=== PATIENT | female | born 1940 | race Caucasian/White ===

== ENCOUNTER → 2016-08-03 | Outpatient (CLI) | payer MEDICARE, OTHER ==
[~2016-08-03] MED LIST: FLON1SPR; LISI40TAB PO; MELA5TAB21 PO; SIMV10TA2 PO; VERA300C PO; VITA100037 PO
[2016-08-03 12:22] LABS: INR 1.08
--- NOTE | 2016-08-03 16:47 | REP ---
CHEST, TWO VIEWS: REASON: Preop assessment. COMPARISON: 09/03/2010. FINDINGS: The superior mediastinal structures are midline. The cardiac silhouette is unremarkable in size, shape, and position. The diaphragmatic surfaces of the lungs are regular, and the costophrenic angles are clear. The pulmonary claros are clear. The imaged osseous structures are intact. No change from the prior exam other than technique. IMPRESSION: There is no acute cardiopulmonary disease. Signed by Fredrick Esposito DO 08/03/2016 05:12 P
--- NOTE | 2016-08-03 20:18 | ECGEPIP ---
Stationary ECG Study [facility] Test Date: 2016-08-03 Pat Name: REMA DUEÑAS Department: Room: - Gender: F Teaching Dietitian: LYNN : 1940 Requested By: Travon Wheat Order Number: [id number] Reading MD: Kylee Georges Measurements Intervals [place] Rate: 67 P: 57 AR: 185 QRS: 41 QRSD: 86 T: 53 QT: 389 QTc: 411 Interpretive Statements SINUS RHYTHM NO PRIOR Electronically Signed On 08-03-2016 20:18:44 EDT by Kylee Georges
== END ==
LOC: M ADMPAT 10:29
PROVIDERS: ATTEND Orthopaedic Surgery
DX: Z01.818 Encounter for other preprocedural examination (principal); M17.12 Unilateral primary osteoarthritis, left knee; Z79.899 Other long term (current) drug therapy

== ENCOUNTER 2016-08-17 05:44 | Inpatient (IN) | payer MEDICARE, OTHER ==
[2016-08-03 11:41] VITALS: BP 148/78
--- NOTE | 2016-08-13 13:24 | HPE ---
DATE OF ADMISSION: 08/17/2016 ATTENDING PHYSICIAN: Travon Ruiz MD CHIEF COMPLAINT: Left knee pain and stiffness. HISTORY: This is a pleasant 76-year-old female patient with progressively worsening left knee pain and stiffness. She has failed to improve with conservative management to include injections, viscosupplementation, activity modification and rest. She continues have pain with normal day-to-day activities. She is being admitted for elective knee replacement on the left side. She has been consented for a left total knee arthroplasty by Dr. Ruiz. X-rays of the knee are notable for end-stage degenerative changes of the left knee. ALLERGIES: 1. She has no true allergies. She does have intolerance eggs that cause nausea and vomiting. 2. DARVOCET, which causes confusion. 3. HYDROCHLOROTHIAZIDE causes her gout to flare. 4. PENICILLIN that her gastrointestinal (GI) issues. CURRENT MEDICATIONS: Include: - calcium with vitamin D one tablet once per day - Flonase 50 mcg two sprays each nostril once per day - lisinopril 40 mg one tablet once per day - Zocor 10 mg one tablet in the p.m. - verapamil extended release 300 mg one tablet once per day - vitamin D 1000 units one tablet once per day MEDICAL HISTORY: Includes: Symptomatic osteoarthritis of the left knee. Allergic rhinitis. Elevated lipids. Hypertension. Osteopenia. Prediabetic. SURGICAL HISTORY: Includes: Bilateral cataract surgery. Tonsils removed. Total hysterectomy. FAMILY HISTORY: Noncontributory. SOCIAL HISTORY: She does not smoke. She does not use alcohol. She is currently retired. REVIEW OF SYSTEMS: Denies fever or chills. Denies chest pain, shortness breath or cough. Denies difficulty breathing. Denies abdominal pain. Denies nausea or vomiting. Has persistent pain in her left knee with weightbearing activities and activities of daily living. Denies recent URI or UTI symptoms. PHYSICAL EXAMINATION: Physical exam today reveals a well-nourished, well-developed alert female patient. She ambulates with a slight limp in gait favoring her left knee. Exam of the left knee reveals tenderness mainly along the medial joint line, but some lateral tenderness as well. Range of motion is near full with irritability to extremes of range of motion. She is stable to varus and valgus stress. Calf is soft, nontender to palpation, well perfused left lower extremity. Neck is supple without adenopathy or jugular venous distention (JVD). Lungs are clear to auscultation without rales or wheeze. Heart regular rate and rhythm. Abdomen bowel sounds are present. LABORATORY DATA: Sed rate of 37. Nasal cultures normal leroy. Urine culture contaminated. Urinalysis contaminated. Chest x-ray no acute cardiopulmonary disease process noted. EKG sinus rhythm. Current blood pressure is 160/90, pulse 80, respirations 16, height 5.5, weight 215 pounds. IMPRESSION: Symptomatic osteoarthritis of the left knee. PLAN: Consented for left total knee arthroplasty by Dr. Ruiz.
[~2016-08-17] VITALS: Ht 165.1 cm; Wt 96.6 kg
[2016-08-17] VITALS (8 sets, daily range): BP systolic 107–175; BP diastolic 59–86; O2SAT 99
[2016-08-17] MEDS ORDERED: CelecoXIB (CeleBREX) 100 MG CAP PO ONE (06:00)
[2016-08-17] MEDS ORDERED: PERCOCET 5MG/325MG TAB PO ONE (06:00)
[2016-08-17] MEDS ORDERED: CelecoXIB 400 MG CAP PO ONE (06:00)
[2016-08-17] MEDS ORDERED: PREGABALIN 75 MG CAP(LYRICA) PO ONE (06:00)
[2016-08-17] MEDS ORDERED: LR 1,000 ML IV ONE (06:00)
[2016-08-17] MEDS ORDERED: fentaNYL 100 MCG/2 ML INJECTION (J3010) As Ordered ONE ×3 (06:50→08:06)
[2016-08-17] MEDS ORDERED: MIDAZOLAM INJ 2 MG/2 ML VIAL (J2250) As Ordered ONE ×2 (06:50→08:06)
[2016-08-17] MEDS ORDERED: BUPIVACAINE/EPIN 0.25% 30 ML VIAL As Ordered ONE (07:11)
[2016-08-17] MEDS ORDERED: TRANEXAMIC ACID 100 MG/ML 10ML VIAL As Ordered ONE ×2 (07:11→07:21)
[2016-08-17] MEDS ORDERED: BUPIVACAINE HCL 0.25% 30 ML VIAL As Ordered ONE ×2 (07:12→08:18)
[2016-08-17] MEDS ORDERED: ceFAZolin 1GM INJ (J0690) As Ordered ONE ×2 (07:12→07:21)
[2016-08-17] MEDS ORDERED: EPINEPHrine INJ 1 MG/ML 1ML VIAL/AMP As Ordered ONE (07:12)
[2016-08-17] MEDS ORDERED: fentaNYL 100 MCG/2 ML INJECTION (J3010) IV PRN ×2 (07:30→10:30)
[2016-08-17] MEDS ORDERED: MIDAZOLAM INJ 2 MG/2 ML VIAL (J2250) IV PRN (07:30)
[2016-08-17] MEDS ORDERED: PROPOFOL 200 MG/20 ML VIAL As Ordered ONE (08:06)
[2016-08-17] MEDS ORDERED: ePHEDrine SULFATE 25 MG/5 ML(5MG/ML) SYRINGE As Ordered ONE (08:06)
[2016-08-17] MEDS ORDERED: PHENYLephrine HCL 500 MCG/5 ML (100MCG/ML) SYRINGE (J2370) As Ordered ONE (08:53)
[2016-08-17] MEDS ORDERED: LR 1,000 ML IV SCH (10:30)
[2016-08-17] MEDS ORDERED: HYDROmorphone HCL 1 MG/ML SYRINGE (J1170) IV PRN ×3 (10:30→11:15)
[2016-08-17] MEDS ORDERED: ONDANSETRON 4MG/2ML VIAL (J2405) IV PRN ×2 (10:30→12:15)
[2016-08-17] MEDS ORDERED: METOCLOPRAMIDE INJ 10MG/2ML VIAL (J2765) IV PRN (10:30)
[2016-08-17] MEDS ORDERED: ACETAMINOPHEN TAB 650MG DOSE (2X325MG) PO PRN (11:00)
[2016-08-17] MEDS ORDERED: FLEET ENEMA PR PRN (11:15)
[2016-08-17] MEDS ORDERED: PATIENT IS CURRENTLY ON AN ON-Q PAIN BUSTER PAIN RELIEF SYSTEM XX SCH (11:15)
--- NOTE | 2016-08-17 11:29 | RO ---
DATE OF PROCEDURE: 08/17/2016 PREOPERATIVE DIAGNOSIS: Left knee osteoarthritis. POSTOPERATIVE DIAGNOSIS: Left knee osteoarthritis. PROCEDURE PERFORMED: Left total knee replacement. SURGEON: Travon Ruiz MD PROGRAMMER ANALYST CONSULTANT: Gonzalo Lott PA-C ANESTHESIA: Femoral block with spinal. ESTIMATED BLOOD LOSS: Less than 50 mL. No complications. Tourniquet was inflated 250 mmHg. 69-minute tourniquet time. COMPONENTS USED: Include DePuy PFC, fifth bearing posterior stabilized cemented knee system, size 3 femoral component, size 3 tibial component, size 8 mm posterior stabilized spacer, size 32 mm patellar button, as well as methylmethacrylate bone cement. Also utilized was PainBuster pump, as per protocol. CONSENT: Reviewed in detail with the patient, including kalpana discussion of the pathology involved, the procedure proposed, alternatives including doing nothing, risks including but not limited to pain, failure, infection, bleeding, blood loss, incomplete relief of symptoms, stiffness, infection, blood clots, or some other problem. The patient wants to proceed. DESCRIPTION OF PROCEDURE: OPERATIVE COURSE: Identified in the holding area. Site and side verified. Brought to the operating room. The femoral block was achieved in the preoperative area. In the operating room, spinal anesthesia was administered. She was sterilely prepped and draped in the usual fashion for exposure of the left knee for knee replacement. Tourniquet was high in the left thigh. Once I and the sheet manager were comfortable with the patient's positioning, she was then sterilely prepped and draped in the usual fashion. Next, the incision was outlined with a marking pen, infiltrated with 0.25% Marcaine with epinephrine by Mr. Lott. We utilized sterile environmental suits for the procedure. Next, the leg was elevated, the tourniquet inflated to 250. Incision was made with a #10 blade, developed down through skin and subcuticular tissues. It was standard midline parapatellar incision. Developed to the extensor mechanism. Extensor mechanism was divided at its medial aspect for a medial parapatellar arthrotomy with a fresh knife. Next, the patella was able to be everted. The infrapatellar fat pad was sacrificed for visualization. Medial release was accomplished with a hot knife, as well as a Calvillo elevator. Supracondylar synovial tissue was removed to allow sizing. Next, the knee was placed into a flexed position. The step drill was utilized to open the femoral canal. The distal femoral cutting jig was then installed, pinned into place. Hohmann retractor was utilized to protect the collateral ligaments. Mr. Lott utilized the oscillating saw to make the distal femoral cut while I supervised. The AP sizing guide was then utilized to predict a size 3 knee. Next, size 3 four-in-one cutting guide was installed, pinned into place, 3 degrees external rotation. Next, Hohmann retractors were placed. Oscillating saw was utilized to make the anterior, posterior, and then chamfer cuts. Next, attention turned to the tibial side. Extramedullary tibial alignment jig was installed with gentle slope. 4 mm taken off the bad side. Sagittal alignment to the second ray. The guide was pinned into place. Drop madhu utilized to verify alignment. were utilized to protect soft tissue. Posterior retractor was utilized. Oscillating saw was utilized to make the proximal tibial cuts. Next, proximal tibia removed. Sized tibia to be a 3. Next, posterior femoral condyles do not appreciate any significant removable osteophytes. Next, the flexion/extension guides installed, predicted a size 8. Next, femoral notch cutting guide installed. Pinned into place. Femoral notch cut made with oscillating saw. This guide was then removed. The trial femoral component was then installed and tamped into place. Trial tibial component with an 8 mm tray was installed, found to be stable with varus and valgus stress extension and flexion. The knee was placed through a range of motion. Good patellar tracking. The knee was extended. Patella everted. Posterior patella cut was made utilizing the oscillating saw, sized for a size 32, drilled a size 32 using the guide. Trialed the size 32 with good tracking. Next, rotational alignment was marked using the hot knife. Trial components then removed. The tibial tray was applied to the proximal tibia. Pinned into place. The large drill guide was applied to the tibial plate for a size 1.5 to 3 and drilled, followed by the size 3 broach. Next, the trial components were then removed. Mr. Lott stepped to the back table to prepare the bone cement while I prepared the knee surfaces with the pulse lavage and dried them and positioned retractors. Next, we then cemented the components of the knee into place, beginning with the tibial component, followed by the femoral component, clearing excess cement with curettes. The knee was extended, patella everted, patella component cemented and clamped. Excess cement removed using curettes. Next, once this was accomplished, the knee was placed in extension over a bump. The cement was allowed to harden. then, we utilized pulse lavage to wash the knee by application of tranexamic acid (TXA) solution, which was allowed to stand for 1 minute. Once the cement had hardened, we again lavaged the knee with pulse lavage, and then we closed the extensor mechanism with running Stratafix stitch, as well as interrupted stitch. PainBuster pump was placed, exiting superolaterally. Deep dermis was reapproximated using buried interrupted Vicryl stitch, followed by application of the Prineo dressing. Next, PainBuster catheter was covered using Tegaderm-type dressing. The tourniquet was deflated at 69 minutes. The patient was moved to recovery room in good condition. For further details, please refer to the medical record.
[2016-08-17] MEDS: D5W/LR 1,000 ML IV SCH ×2 (13:15→20:45)
[2016-08-17] MEDS: PERCOCET 5MG/325MG TAB PO PRN ×2 (13:54→23:04)
[2016-08-17] MEDS ORDERED: WARFARIN SOD 1 MG TAB PO SCH (17:00)
[2016-08-17] MEDS ORDERED: WARFARIN SOD 2.5 MG TAB PO SCH (17:00)
--- NOTE | 2016-08-17 17:52 | CR.PDOC ---
[facility] Consultation Consultation DATE OF CONSULTATION: 08/17/16 REFERRING PROVIDER: France Holguin M.D. ATTENDING PHYSICIAN: Dr. Travon Ruiz REASON FOR CONSULTATION/CHIEF COMPLAINT: . Medical Co-Management of Comorbidities HISTORY OF PRESENT ILLNESS: . 76-year-old female with past medical history of hypertension, dyslipidemia, allergic rhinitis, and vitamin D deficiency with chronic osteoarthritis of the left knee admitted under the orthopedic service for left total knee replacement. At this time, the patient states that she is feeling relatively well after replacement of her left knee. She states that her pain is well controlled at the moment. She denies any acute complaints of fevers, chills, chest pain, shortness of breath, abdominal pain, or any nausea/vomiting/ diarrhea. The hospitalist service has been consulted for medical management of the patient's comorbidities. ALLERGIES: Please see below. HOME MEDICATIONS: Please see below. PAST MEDICAL HISTORY: As noted in HPI PAST SURGICAL HISTORY: Bilateral cataract surgery, tonsillectomy, total hysterectomy FAMILY HISTORY: Nonpertinent SOCIAL HISTORY: Patient denies any tobacco, alcohol, or illicit drug use. Currently retired REVIEW OF SYSTEMS: 10 point review of systems negative unless otherwise specified HPI PHYSICAL EXAMINATION: VITAL SIGNS: Please see below. GENERAL APPEARANCE. Awake, alert, oriented, in no acute distress HEENT. No JVD RESPIRATORY. Clear to auscultation bilaterally CARDIOVASCULAR . Bradycardic with heart rate in the 50s ABDOMEN. Soft, nontender, nondistended EXTREMITIES. Left knee wrapped in surgical dressing, limited range of motion secondary to recent surgery. Patient is neurovascularly intact distally LABORATORY DATA: Please see below. ASSESSMENT/PLAN: Status post total left knee replacement DVT prophylaxis and pain management as per orthopedic service Asymptomatic bradycardia Patient's heart rate noted to be in the 50s at bedside, however the patient is not displaying any symptoms of lightheadedness, shortness of breath, chest pain or any other complaints. The patient is on verapamil for her blood pressure, we will hold this Hypertension The patient's blood pressure is relatively well controlled at this point We can restart the patient's lisinopril tomorrow after reviewing lab work Dyslipidemia Continue statin Osteopenia/vitamin D deficiency Vitamin D supplementation Allergic rhinitis Continue Flonase DVT prophylaxis As per primary service Vital Signs/I&O Vital Signs Date Time Temp Pulse Resp B/P (MAP) Pulse Ox O2 Delivery O2 Flow Rate FiO2 08/17/16 15:45 97.0 58 18 155/72 (99) 98 Nasal Cannula 2.0 Allergies Coded Allergies: Erythromycin (Verified Allergy, Unknown, 08/17/16) Hydrochlorothiazide (Verified Allergy, Unknown, 08/17/16) Penicillins (Verified Allergy, Unknown, 08/17/16) Propoxyphene (Verified Allergy, Unknown, 08/17/16) Unclassified Drugs (Verified Adverse Reaction, Intermediate, "MOST ANTIBIOTICS" - DIARRHEA, 08/17/16) Home Medications Scheduled Lisinopril (Lisinopril) 40 Mg Tab, 40 MG PO DAILY, (Reported) Simvastatin (Simvastatin) 10 Mg Tab, 10 MG PO DAILY, (Reported) Verapamil Hcl (Verapamil HCl ER) 300 Mg Cap, 300 MG PO DAILY, (Reported) Vitamin D (Vitamin D) 1,000 Unit Cap, 1,000 UNIT PO DAILY, (Reported) Scheduled PRN (Flonase Allergy Relief) 50 Mcg/Act Spr, 50 MCG NA PRN PRN for NASAL CONGESTION , (Reported) Melatonin (Melatonin) 5 Mg Tab, 5 MG PO PRN PRN for SLEEP, (Reported) FRANCE HOLGUIN MD August 17, 2016 17:52
[2016-08-17] MEDS ORDERED: FLUTICASONE PROP 0.05% NASAL SPRAY 16 GM (FLONASE) PRN (18:00)
[2016-08-17] MEDS: SIMVASTATIN 10 MG TAB PO SCH (20:08)
[2016-08-18 02:00] VITALS: BP 133/69
[2016-08-18] MEDS: PERCOCET 5MG/325MG TAB PO PRN ×3 (04:40→16:57)
[2016-08-18 06:00] VITALS: BP 139/75
[2016-08-18 06:55] LABS: MEAN CORPUSCULAR HEMOGLOBIN 29.8 pg (27.0-33.0); MEAN CORPUSCULAR HGB CONC 33.7 g/dl (32.0-36.5); MEAN CORPUSCULAR VOLUME 88.3 fl (80.0-96.0); WHITE BLOOD COUNT 15.9 K/mm3 (4.0-10.0)
[2016-08-18 07:02] LABS: INR 1.47
[2016-08-18 07:03] LABS: ANION GAP 9 MEQ/L (8-16); BLOOD UREA NITROGEN 15 MG/DL (7-18); CALCIUM LEVEL 8.1 MG/DL (8.8-10.2); CARBON DIOXIDE LEVEL 23 MEQ/L (21-32); CHLORIDE LEVEL 106 MEQ/L (98-107); CREATININE FOR GFR 0.82 MG/DL (0.55-1.02); GLOMERULAR FILTRATION RATE > 60.0 (>39); GLUCOSE, FASTING 147 MG/DL (83-110); POTASSIUM SERUM 4.3 MEQ/L (3.5-5.1); SODIUM LEVEL 138 MEQ/L (136-145)
[2016-08-18] MEDS: MOM 30ML SUSPENSION UDC PO SCH (08:30)
[2016-08-18] MEDS: MIRALAX *UNIT DOSE* 17GM PACKET PO SCH (08:30)
[2016-08-18] MEDS: LISINOPRIL 40 MG TAB PO SCH (08:30)
[2016-08-18] MEDS: SENOKOT S TAB PO SCH ×2 (08:30→20:07)
[2016-08-18] MEDS: VITAMIN D 1,000 INTERNATIONAL UNITS TABLET PO SCH (08:30)
[2016-08-18 10:20] VITALS: O2SAT 96
--- NOTE | 2016-08-18 10:24 | REP ---
LEFT KNEE, TWO VIEWS: HISTORY: Knee replacement. The patient is status post left total knee replacement. There is no acute fracture or dislocation. A small amount of subcutaneous air and drainage tubing are present in the overlying soft tissue. IMPRESSION: The patient is status post left total knee replacement. There is anatomic alignment. Signed by Keyur Peters MD 08/18/2016 10:27 A
--- NOTE | 2016-08-18 12:02 | REP ---
Clinical: Left lower lobe crackles . Comparison: 08/03/2016 . Findings: The mediastinum and cardiac silhouette are stable and within normal limits for portable technique. The lung claros are clear without acute consolidation, effusion, or pneumothorax. Skeletal structures are intact. Impression: No obvious acute cardiopulmonary process. Signed by Lobo Cerrato MD 08/18/2016 11:53 A
[2016-08-18 14:00] VITALS: BP 182/84
--- NOTE | 2016-08-18 15:32 | IPNPDOC ---
Text Note Date of Service The patient was seen on 08/18/16. NOTE Subjective: Patient is a 76 year old female with a PMHx of hypertension, dyslipidemia, allergic rhinitis, and vitamin D deficiency, and chronic osteoarthritis of the left knee who was admitted under the orthopedic service for left total knee replacement. Patient was seen and examined at the bedside. Patient notes that she is having some mild leg pain. She denies any other problems. Advised her that physical therapy will be starting today. Objective: Vitals (See below) General: Lying in bed, no acute distress, comfortable, AAOx3 HEENT: NC, AT CVS: RRR, +S1S2 Lungs: Fair air entry b/l, -w/r/r Abdomen: Soft, ND, NT, +BSx4 Extremities: +PPx4, - Edema, - Calf tenderness, Left knee with dressing in place - appears saturated with serosanguineous fluid Assessment and plan: 1. Left knee pain - likely 2/2 arthritis - s/p Left knee arthroplasty (POD #1) - wound appears clean, without signs of infection - c/w Physical therapy - Pain management and DVT prophylaxis by primary team 2. Bradycardia, asymptomatic - likely 2/2 medications - no chest pain, SOB, dizziness - HR normalized this morning - s/p Verapamil 3. HTN - restarted Lisinopril this morning (re: normal renal function) 4. DLP - c/w simvastatin 5. Osteopenia / Vitamin D deficiency - c/w Vitamin D supplements 6. Allergic rhinitis - c/w Flonase 7. DVT prophylaxis - c/w full anticoagulation with Coumadin - Managed by primary team Buster DOVER, I+O VS, Buster, I+O Laboratory Tests 08/18/16 06:39 Red Blood Count 4.17, Mean Corpuscular Volume 88.3, Mean Corpuscular Hemoglobin 29.8, Mean Corpuscular Hemoglobin Concent 33.7, Red Cell Distribution Width 13.0 , Calcium Level 8.1 L Vital Signs Date Time Temp Pulse Resp B/P (MAP) Pulse Ox O2 Delivery O2 Flow Rate FiO2 08/18/16 14:00 99.8 71 18 182/84 (116) 97 Room Air 08/18/16 06:00 2.0 I&O- Last 24 Hours up to 6 AM 08/18/16 06:00 Intake Total 4045 ml Output Total 850 ml Balance 3195 ml BRITTON BROOKS MD August 18, 2016 15:32
[2016-08-18] MEDS ORDERED: WARFARIN SOD 5 MG TAB PO ONE (17:00)
[2016-08-18] MEDS: SIMVASTATIN 10 MG TAB PO SCH (20:07)
[2016-08-18 22:00] VITALS: BP 177/81
[2016-08-19] MEDS: PERCOCET 5MG/325MG TAB PO PRN ×3 (03:52→17:34)
[2016-08-19 06:00] VITALS: BP 143/63
[2016-08-19 07:22] LABS: INR 1.85
[2016-08-19] MEDS ORDERED: LIDOCAINE 1% MDV 20ML VIAL ONE (07:25)
[2016-08-19] MEDS ORDERED: ROPIvacaine 0.5% 30 ML INJECTION (J2795) ONE (07:25)
[2016-08-19 08:11] LABS: MEAN CORPUSCULAR HEMOGLOBIN 29.9 pg (27.0-33.0); MEAN CORPUSCULAR HGB CONC 33.6 g/dl (32.0-36.5); MEAN CORPUSCULAR VOLUME 89.1 fl (80.0-96.0); RED CELL DISTRIBUTION WIDTH 13.2 % (11.5-14.5); WHITE BLOOD COUNT 14.8 K/mm3 (4.0-10.0)
[2016-08-19 08:16] LABS: ANION GAP 7 MEQ/L (8-16); BLOOD UREA NITROGEN 14 MG/DL (7-18); CALCIUM LEVEL 8.8 MG/DL (8.8-10.2); CARBON DIOXIDE LEVEL 27 MEQ/L (21-32); CHLORIDE LEVEL 108 MEQ/L (98-107); CREATININE FOR GFR 0.63 MG/DL (0.55-1.02); GLOMERULAR FILTRATION RATE > 60.0 (>39); GLUCOSE, FASTING 109 MG/DL (83-110); MAGNESIUM LEVEL 2.1 MG/DL (1.8-2.4); POTASSIUM SERUM 4.2 MEQ/L (3.5-5.1); SODIUM LEVEL 142 MEQ/L (136-145)
[2016-08-19] MEDS ORDERED: PERC5TAB6 PO (08:33)
[2016-08-19] MEDS ORDERED: COUM2.5T11 PO (08:33)
[2016-08-19] MEDS: SENOKOT S TAB PO SCH ×2 (09:00→20:15)
[2016-08-19] MEDS: MOM 30ML SUSPENSION UDC PO SCH (09:00)
[2016-08-19] MEDS: MIRALAX *UNIT DOSE* 17GM PACKET PO SCH (09:00)
[2016-08-19] MEDS: VITAMIN D 1,000 INTERNATIONAL UNITS TABLET PO SCH (09:15)
[2016-08-19] MEDS: LISINOPRIL 40 MG TAB PO SCH (09:15)
--- NOTE | 2016-08-19 11:34 | IPNPDOC ---
Text Note Date of Service The patient was seen on 08/19/16. NOTE Subjective: Patient is a 76 year old female with a PMHx of hypertension, dyslipidemia, allergic rhinitis, and vitamin D deficiency, and chronic osteoarthritis of the left knee who was admitted under the orthopedic service for left total knee replacement. Patient was seen and examined at the bedside. She reports that she is having difficulty moving her left leg. She notes that physical therapy has come yesterday, but she was unable to complete a full session. Objective: Vitals (See below) General: Lying in bed, no acute distress, comfortable, AAOx3 HEENT: NC, AT CVS: RRR, +S1S2 Lungs: Fair air entry b/l, -w/r/r Abdomen: Soft, ND, NT, +BSx4 Extremities: +PPx4, - Edema, - Calf tenderness, Left knee with incision (no evidence of drainage, tenderness or warmth) Assessment and plan: 1. Left knee pain - likely 2/2 arthritis - s/p Left knee arthroplasty (POD #2) - wound appears clean, without signs of infection - Pain management and DVT prophylaxis by primary team - c/w Physical therapy - Disposition based on PT recommendations 2. Bradycardia, asymptomatic - likely 2/2 medications - no chest pain, SOB, dizziness - HR normalized this morning - s/p Verapamil 3. Leukocytosis - likely 2/2 reactive etiology 2/2 surgery, less likely infectious - review of systems negative - CXR 08/18: negative - no antibiotics at this time 4. HTN - BP better controlled after restarting oral pills - c/w Lisinopril - continue to hold Verapamil 5. DLP - c/w simvastatin 6. Osteopenia / Vitamin D deficiency - c/w Vitamin D supplements 7. Allergic rhinitis - c/w Flonase 8. DVT prophylaxis - c/w full anticoagulation with Coumadin - Managed by primary team VS,Buster, I+O VS, Buster, I+O Laboratory Tests 08/19/16 07:24 Red Blood Count 3.91 L, Mean Corpuscular Volume 89.1, Mean Corpuscular Hemoglobin 29.9, Mean Corpuscular Hemoglobin Concent 33.6, Red Cell Distribution Width 13.2, Calcium Level 8.8 Vital Signs Date Time Temp Pulse Resp B/P (MAP) Pulse Ox O2 Delivery O2 Flow Rate FiO2 08/19/16 10:50 18 08/19/16 06:00 97.7 83 143/63 (89) 94 Room Air 08/18/16 06:00 2.0 I&O- Last 24 Hours up to 6 AM 08/19/16 06:00 Intake Total 1380 ml Output Total 1800 ml Balance -420 ml BRITTON BROOKS MD August 19, 2016 11:34
[2016-08-19 14:00] VITALS: BP 191/92
[2016-08-19 15:00] VITALS: BP 176/74
[2016-08-19] MEDS ORDERED: WARFARIN SOD 2.5 MG TAB PO ONE (17:00)
[2016-08-19 20:00] VITALS: BP 200/90
[2016-08-19] MEDS: SIMVASTATIN 10 MG TAB PO SCH (20:14)
[2016-08-19 21:24] VITALS: BP 164/72
[2016-08-20] MEDS: PERCOCET 5MG/325MG TAB PO PRN ×2 (05:10→09:31)
[2016-08-20 06:00] VITALS: BP 185/95
[2016-08-20 07:26] LABS: MEAN CORPUSCULAR HEMOGLOBIN 29.4 pg (27.0-33.0); MEAN CORPUSCULAR HGB CONC 33.5 g/dl (32.0-36.5); MEAN CORPUSCULAR VOLUME 87.8 fl (80.0-96.0); RED CELL DISTRIBUTION WIDTH 12.9 % (11.5-14.5); WHITE BLOOD COUNT 12.1 K/mm3 (4.0-10.0)
[2016-08-20 07:32] LABS: INR 1.78
[2016-08-20 07:54] LABS: ANION GAP 6 MEQ/L (8-16); BLOOD UREA NITROGEN 12 MG/DL (7-18); CALCIUM LEVEL 8.8 MG/DL (8.8-10.2); CARBON DIOXIDE LEVEL 28 MEQ/L (21-32); CHLORIDE LEVEL 108 MEQ/L (98-107); CREATININE FOR GFR 0.63 MG/DL (0.55-1.02); GLOMERULAR FILTRATION RATE > 60.0 (>39); GLUCOSE, FASTING 105 MG/DL (83-110); POTASSIUM SERUM 3.6 MEQ/L (3.5-5.1); SODIUM LEVEL 142 MEQ/L (136-145)
[2016-08-20] MEDS: MOM 30ML SUSPENSION UDC PO SCH (09:00)
[2016-08-20] MEDS: SENOKOT S TAB PO SCH (09:00)
[2016-08-20] MEDS: MIRALAX *UNIT DOSE* 17GM PACKET PO SCH (09:00)
[2016-08-20] MEDS ORDERED: AMLO5TAB2 PO (09:28)
[2016-08-20] MEDS: VITAMIN D 1,000 INTERNATIONAL UNITS TABLET PO SCH (09:30)
[2016-08-20] MEDS: LISINOPRIL 40 MG TAB PO SCH (09:30)
--- NOTE | 2016-08-20 11:58 | IPNPDOC ---
Text Note Date of Service The patient was seen on 08/20/16. NOTE Subjective: Patient is a 76 year old female with a PMHx of hypertension, dyslipidemia, allergic rhinitis, and vitamin D deficiency, and chronic osteoarthritis of the left knee who was admitted under the orthopedic service for left total knee replacement. Patient was seen and examined at the bedside. She notes improvement in her pain and has made progress with physical therapy. She has been cleared for discharge by orthopedic surgery. Objective: Vitals (See below) General: Lying in bed, no acute distress, comfortable, AAOx3 HEENT: NC, AT CVS: RRR, +S1S2 Lungs: Fair air entry b/l, -w/r/r Abdomen: Soft, ND, NT, +BSx4 Extremities: +PPx4, - Edema, - Calf tenderness, Left knee with incision (no evidence of drainage, tenderness or warmth) Assessment and plan: 1. Left knee pain - likely 2/2 arthritis - s/p Left knee arthroplasty (POD #3) - wound appears clean, without signs of infection - Pain management and DVT prophylaxis by primary team - c/w Physical therapy; disposition home with services 2. s/p Bradycardia, asymptomatic - likely 2/2 medications - no chest pain, SOB, dizziness - HR normalized this morning - s/p Verapamil 3. Leukocytosis - likely 2/2 reactive etiology 2/2 surgery, less likely infectious - review of systems negative; remains afebrile - continues to improve - CXR 08/18: negative - no antibiotics at this time 4. HTN - BP better controlled after restarting oral pills - c/w Lisinopril - continue to hold Verapamil - will charge home with Amlodipine 5mg QHS 5. DLP - c/w simvastatin 6. Osteopenia / Vitamin D deficiency - c/w Vitamin D supplements 7. Allergic rhinitis - c/w Flonase 8. DVT prophylaxis - c/w full anticoagulation with Coumadin - Managed by primary team Buster DOVER, I+O Buster DOVER, I+O Laboratory Tests 08/20/16 06:54 Red Blood Count 3.74 L, Mean Corpuscular Volume 87.8, Mean Corpuscular Hemoglobin 29.4, Mean Corpuscular Hemoglobin Concent 33.5, Red Cell Distribution Width 12.9, Calcium Level 8.8 Vital Signs Date Time Temp Pulse Resp B/P (MAP) Pulse Ox O2 Delivery O2 Flow Rate FiO2 08/20/16 10:15 18 08/20/16 10:00 Room Air 08/20/16 06:00 99.5 83 185/95 (125) 96 08/18/16 06:00 2.0 I&O- Last 24 Hours up to 6 AM 08/20/16 06:00 Intake Total 1700 ml Output Total 1400 ml Balance 300 ml BRITTON BROOKS MD August 20, 2016 11:58
--- NOTE | 2016-08-27 20:21 | DSES ---
DATE OF ADMISSION: 08/17/2016 DATE OF DISCHARGE: 08/20/2016 ATTENDING PHYSICIAN: Travon Ruiz MD ADMITTING DIAGNOSIS: Left knee osteoarthritis. OTHER DIAGNOSES: 1. Hypertension. 2. Hyperlipidemia. 3. Prediabetes. 4. Osteopenia. 5. Allergic rhinitis. DISCHARGE DIAGNOSIS: Left knee osteoarthritis status post left total knee arthroplasty. HISTORY OF PRESENT ILLNESS: Patient is a 76-year-old female with continuing left knee pain and stiffness. She failed to improve with conservative measures so she consented for an elective left total knee arthroplasty with Dr. Travon Ruiz. OPERATION PERFORMED: Left total knee arthroplasty. The patient underwent a left total knee arthroplasty under spinal anesthesia which was uneventful. Her hospital course was without complication and she was up with physical therapy per their protocol, weightbearing as tolerated on the left lower extremity. She was discharged on oral pain medications and will resume her preoperative medications and diet. She will take Coumadin and use her thromboembolic deterrent stockings for 30 days postoperatively to prevent deep venous thrombosis. She will followup in our office in approximately 12-14 days for a wound check and staple removal. She is encouraged to contact our office sooner if there is any increased pain, drainage, bleeding, redness, numbness or tingling in her leg, fever greater than 101 degrees, or any other concerns. Please see her medical record for additional details.
== END 2016-08-20 12:40 | disposition home or self-care (01) | DRG 470 ==
LOC: M OR 05:44 → M MS5PR 13:05
PROVIDERS: ADMIT Orthopaedic Surgery; ATTEND Orthopaedic Surgery
PROC: 0SRD0J9 Replacement of Left Knee Joint with Synthetic Substitute, Cemented, Open Approach (ICD-10-PCS; principal; 2016-08-17 07:30)
DX: M17.12 Unilateral primary osteoarthritis, left knee (principal); I10 Essential (primary) hypertension; J30.9 Allergic rhinitis, unspecified; M85.80 Other specified disorders of bone density and structure, unspecified site; R00.1 Bradycardia, unspecified; E78.5 Hyperlipidemia, unspecified; D72.829 Elevated white blood cell count, unspecified; E55.9 Vitamin D deficiency, unspecified; Z88.0 Allergy status to penicillin; Z88.5 Allergy status to narcotic agent; Z88.8 Allergy status to other drugs, medicaments and biological substances; Z91.012 Allergy to eggs; Z79.899 Other long term (current) drug therapy; Z90.710 Acquired absence of both cervix and uterus

== ENCOUNTER → 2020-08-19 | Outpatient (REF) | payer MEDICARE, OTHER ==
[~2020-08-19] MED LIST changes: +AMLO1TAB24 PO; +COUM2.5T17 PO; +LISI40TA4 PO; -LISI40TAB PO; +PERC5TAB12 PO; -SIMV10TA2 PO; +SIMV10TA21 PO; -VERA300C PO; +VERA300C6 PO; -VITA100037 PO; +VITA100067 PO
== END ==
LOC: M LAB REF 13:48
PROVIDERS: ATTEND Physician Assistant
DX: L57.0 Actinic keratosis (principal)
CPT/HCPCS: 11102; 88305; G0463

== ENCOUNTER → 2021-05-29 | Outpatient (REF) | payer MEDICARE, OTHER | LOC: M SFHCDERM 14:01 | PROVIDERS: ATTEND Physician Assistant | DX: D23.4 Other benign neoplasm of skin of scalp and neck (principal) ==

== ENCOUNTER → 2021-12-28 | Outpatient (CLI) | payer MEDICARE ==
[~2021-12-28] MED LIST changes: +VERA360C PO
== END ==
LOC: M LABSMTC 09:50
PROVIDERS: ATTEND Anesthesiology
DX: Z01.812 Encounter for preprocedural laboratory examination (principal); Z20.822 Contact with and (suspected) exposure to COVID-19

== ENCOUNTER 2022-01-05 07:17 | Day surgery (SDC) | payer MEDICARE ==
[~2022-01-05] VITALS: Ht 167.6 cm; Wt 109.3 kg
[~2022-01-05 07:17] MED LIST changes: +ceFAZolin SOD 2 GM in IV 1 EA IV ONE
[2022-01-05] MEDS ORDERED: LR 1,000 ML IV SCH ×2 (08:20→10:15)
[2022-01-05] MEDS ORDERED: ONDANSETRON 4MG 2ML VIAL As Ordered ONE (08:36)
[2022-01-05] MEDS ORDERED: dexameTHASONE 4 MG/ML 1ML VIAL (J1100 PER 1MG) As Ordered ONE (08:36)
[2022-01-05] MEDS ORDERED: LIDOCAINE 2% 100MG/5ML SDV (FOR ANES.) As Ordered ONE (08:36)
[2022-01-05] MEDS ORDERED: MIDAZOLAM INJ 2MG/2ML VIAL (J2250 PER 1MG) As Ordered ONE (08:36)
[2022-01-05] MEDS ORDERED: propofoL 200 MG/20 ML VIAL As Ordered ONE (08:36)
[2022-01-05] MEDS ORDERED: fentaNYL 100 MCG/2 ML INJECTION As Ordered ONE (08:37)
[2022-01-05] MEDS ORDERED: ISOVUE-300 61% 50ML VIAL As Ordered ONE (09:10)
[2022-01-05] MEDS ORDERED: LACRILUBE (AKWA TEARS) OPHTH OINT 3.5 GM As Ordered ONE (09:37)
[2022-01-05] MEDS ORDERED: ACETAMINOPHEN 1000MG 100ML IV BTL (OFIRMEV) (J0131 PER 10MG) As Ordered ONE (09:56)
[2022-01-05] MEDS ORDERED: fentaNYL 100 MCG/2 ML INJECTION IV PRN (10:15)
[2022-01-05] MEDS ORDERED: ONDANSETRON 4MG 2ML VIAL IV PRN (10:15)
[2022-01-05] MEDS ORDERED: oxyCODONE 5MG TAB PO PRN (10:15)
[2022-01-05] MEDS ORDERED: HYDROMORPHONE HCL 0.5 MG/ 0.5 ML SYRINGE (J1170 PER 1) IV PRN (10:15)
[2022-01-05] MEDS ORDERED: ACETAMINOPHEN TAB 650MG DOSE (2X325MG) PO PRN (11:00)
[2022-01-05 11:02] VITALS: BP 148/67
== END 2022-01-05 11:20 | disposition home or self-care (01) ==
LOC: M SDC 07:17
PROVIDERS: ATTEND Urology
DX: N20.1 Calculus of ureter (principal); I10 Essential (primary) hypertension; E78.5 Hyperlipidemia, unspecified; R73.03 Prediabetes; K21.9 Gastro-esophageal reflux disease without esophagitis; Z88.0 Allergy status to penicillin; Z88.8 Allergy status to other drugs, medicaments and biological substances; Z88.1 Allergy status to other antibiotic agents; Z79.899 Other long term (current) drug therapy
CPT/HCPCS: 52005; 71046; 74420; C1769; J0131; J0690; J1100; J2250; J2405; J3010; Q9967

== ENCOUNTER → 2023-10-11 | Outpatient (REF) | payer MEDICARE, OTHER, BC ==
[~2023-10-11] MED LIST changes: -ceFAZolin SOD 2 GM in IV 1 EA IV ONE
== END ==
LOC: M SFHCDERM 17:59
PROVIDERS: ATTEND Physician Assistant
DX: C44.329 Squamous cell carcinoma of skin of other parts of face (principal)